=== PATIENT | male | born 2000 | race Caucasian/White ===

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

== ENCOUNTER 2019-08-12 21:51 | Emergency (ER) | payer MEDICAID, OTHER ==
[2019-08-12 21:57] VITALS: BP 137/87; PULSE 76
--- NOTE | 2019-08-12 21:59 | EDM.PDOC ---
ED HPI GENERAL MEDICAL PROBLEM - General Chief Complaint: General Stated Complaint: left side and back pain Time Seen by Provider: 08/12/19 21:58 Source of Information: Reports: Patient History Limitations: Reports: No Limitations - History of Present Illness INITIAL COMMENTS - FREE TEXT/NARRATIVE: Patient fell from about 6 feet. Landed on his back. He was changing a wiper on a tractor when it broke off and he fell. No loss of consciousness. He does have pleuritic pain. No previous fractures that he knows of within the thoracic cavity otherwise he has had fractures of the fingers before. Pulse oximeter is normal. He does not like needles. He is in mild distress. Onset: Today Duration: Waxing/Waning Location: Reports: Other (Left chest. Left back.) Quality: Reports: Burning, Pressure Severity: Moderate Improves with: Reports: None Worsens with: Reports: Breathing Context: Reports: Trauma Associated Symptoms: Reports: cough w sputum, Malaise, Shortness of Breath, Other (Hematoemesis) Left Back Pain Score (Numeric/FACES): 7 - Related Data Allergies Allergy/AdvReac Type Severity Reaction Status Date / Time No Known Allergies Allergy Verified 08/12/19 21:53 Home Meds: Home Meds . [No Known Home Meds] 03/10/17 [History] Past Medical History - Past Health History Medical/Surgical History: Denies Medical/Surgical History Cardiovascular History: Reports: Arrhythmia, Other (See Below) Other Cardiovascular History: enlarged heart Social & Family History - Caffeine Use Caffeine Use: Reports: Energy Drinks ED ROS GENERAL - Review of Systems Review Of Systems: See Below Constitutional: Reports: No Symptoms HEENT: Reports: Vertigo (some) Respiratory: Reports: Pleuritic Chest Pain Cardiovascular: Reports: Chest Pain (localized and reproducible), Dyspnea on Exertion, Lightheadedness (slight) GI/Abdominal: Reports: No Symptoms Musculoskeletal: Reports: Back Pain Skin: Reports: No Symptoms Neurological: Reports: No Symptoms Psychiatric: Reports: No Symptoms Hematologic/Lymphatic: Reports: No Symptoms Immunologic: Reports: No Symptoms ED EXAM, GENERAL - Physical Exam Exam: See Below Exam Limited By: No Limitations General Appearance: Alert, Mild Distress Eye Exam: Bilateral Eye: Normal Fundi, Normal Inspection Ears: Normal External Exam Nose: Normal Inspection Throat/Mouth: Normal Inspection Head: Normocephalic Neck: Normal Inspection, Supple Respiratory/Chest: Lungs Clear, Decreased Breath Sounds, Other (Pain on palpation about the left side. Also about the left back. No crepitus.). No: Chest Non-Tender Cardiovascular: Regular Rate, Rhythm Back Exam: Normal Inspection, Full Range of Motion, Muscle Spasm, Paraspinal Tenderness. No: Vertebral Tenderness Extremities: Normal Inspection, Normal Range of Motion Neurological: Alert, Oriented Psychiatric: Normal Affect Skin Exam: Warm, Dry Course - Vital Signs Last Recorded V/S: Last Vital Signs Temp 36.2 C 08/12/19 21:54 Pulse 76 08/12/19 21:54 Resp 18 08/12/19 21:54 BP 137/87 08/12/19 21:54 Pulse Ox 100 08/12/19 21:54 - Orders/Labs/Meds Orders: Active Orders 24 hr Category Date Time Status Chest wo Cont [CT] Stat Exams 08/12/19 22:08 Taken Departure - Departure Time of Disposition: 23:04 Disposition: Home, Self-Care 01 Condition: Good Clinical Impression: Left pulmonary contusion Qualifiers: Encounter type: initial encounter Qualified Code(s): S27.321A - Contusion of lung, unilateral, initial encounter Contusion of thoracic wall Qualifiers: Encounter type: initial encounter Contusion of thoracic wall detail: unspecified area of thoracic wall Qualified Code(s): S20.20XA - Contusion of thorax, unspecified, initial encounter - Discharge Information *PRESCRIPTION DRUG MONITORING PROGRAM REVIEWED*: Not Applicable *COPY OF PRESCRIPTION DRUG MONITORING REPORT IN PATIENT SURJIT: Not Applicable Instructions: Chest Contusion, Adult, [id number] Forms: ED Department Discharge, ED Return to Work/School Form Additional Instructions: Ice and Ibuprofen (400-600 mg 2-3 times a day x 5 days) . Deep breaths as tolerated. Return if symptoms worsen. Did CT scan to rule out pneumothorax and rib fractures. Anticipate recovery to be about a week plus secondary to contusions. Work Restrictions include- do nothing to aggravate the injury. Sepsis Event Note - Evaluation Sepsis Screening Result: No Definite Risk - Focused Exam Vital Signs: Vital Signs Temp Pulse Resp BP Pulse Ox 08/12/19 21:54 36.2 C 76 18 137/87 100 Date Exam was Performed: 08/12/19 Time Exam was Performed: 23:04 - My Orders Last 24 Hours: My Active Orders 08/12/19 22:08 Chest wo Cont [CT] Stat - Assessment/Plan Last 24 Hours: My Active Orders 08/12/19 22:08 Chest wo Cont [CT] Stat
--- NOTE | 2019-08-13 07:48 | CT ---
[id number] CT/CT Chest WO IV EXAM: CT Chest WO IV CLINICAL DATA: TRAUMA, FALL FROM TRACTOR, INJURY TO LEFT CHEST/BACK COMPARISON: None. FINDINGS: LUNGS: Clear. No pneumothorax or effusion. No endobronchial lesions. HEART AND GREAT VESSELS: Normal. MEDIASTINUM AND LYMPHATICS: No mediastinal or hilar lymphadenopathy. UPPER ABDOMINAL ORGANS: Normal. BONES: Scattered changes of spondylosis in the spine. No fracture or osseous lesion. IMPRESSION: No significant abnormality in the chest. Alexis Ryan DO 08/13/19 0747 Thank you for allowing us to participate in the care of your patient.
== END 2019-08-12 23:11 | disposition home or self-care (01) ==
LOC: VM.ED 21:51
DX: S27.321A Contusion of lung, unilateral, initial encounter (principal); S20.20XA Contusion of thorax, unspecified, initial encounter; W19.XXXA Unspecified fall, initial encounter
CPT/HCPCS: 71250; 99283-GF; 99284-25

== ENCOUNTER 2024-03-05 14:51 | Emergency (ER) | payer OTHER ==
[2024-03-05] MEDS: hydrOXYzine HCl 25 MG Tab PO ONE (15:02)
[2024-03-05] MEDS: Famotidine 20 MG Tab PO ONE (15:02)
[2024-03-05 15:10] VITALS: BP 130/81; PULSE 85
== END 2024-03-05 15:14 | disposition home or self-care (01) ==
LOC: VM.ED 14:51
DX: T63.441A Toxic effect of venom of bees, accidental (unintentional), initial encounter (principal)
CPT/HCPCS: 99282; 99283; A9270-GY